=== PATIENT | male | born 1975 | race Two or more races ===

== ENCOUNTER 2016-12-11 02:54 | Emergency (ER) | payer SELFPAY | END 2016-12-11 02:57 | disposition home or self-care (01) | LOC: CED 02:54 | DX: S16.1XXA Strain of muscle, fascia and tendon at neck level, initial encounter (principal); X50.1XXA Overexertion from prolonged static or awkward postures, initial encounter | CPT/HCPCS: 99283 ==

== ENCOUNTER → 2017-03-11 | Outpatient (CLI) | payer OTHER ==
--- NOTE | ~2017-03-11 | EKG ---
PATIENT: YENI CHAVARRIA UNIT #: [id number] Ventricular Rate: 50 BPM Atrial Rate: 50 BPM P-R Interval: 178 ms QRS Duration: 92 ms Q-T Interval: 426 ms QTC Calculation(Bezet): 388 ms P [place]: 23 degrees Calculated R [place]: 48 degrees Calculated T [place]: 7 degrees Diagnosis Line: Sinus bradycardia Diagnosis Line: Otherwise normal ECG Diagnosis Line: No previous ECGs available Diagnosis Line: Confirmed by CHRISTINE OSPINA MD ([id number]) on Diagnosis Line: 03/11/2017 9:37:29 AM INTERPRETING MD: ANAI CORCORAN
[2017-03-11 07:01] LABS: HEMATOCRIT 47.3 % (38.0-50.0); HEMOGLOBIN 16.3 gm/dL (13.0-16.0); MEAN CELL VOLUME 80.2 FL (83-96); MEAN CORPUSCULAR HEMOGLOBIN 27.6 PG (28-34); MEAN CORPUSCULAR HGB CONC 34.4 g/dL (30-36); MEAN PLATELET VOLUME 6.6 FL (6.5-11.5); RED BLOOD COUNT 5.9 X10e (3.90-5.60); WHITE BLOOD COUNT 6.8 X10e3 (4.0-10.5)
[2017-03-11 07:59] LABS: BUN/CREATININE RATIO 15.45; CALCIUM SERUM 9.4 mg/dL (8.4-10.2); CREATININE SERUM 1.1 mg/dL (0.6-1.4); GLOM FILT RATE Estimated 81.8 mL/min (>60); POTASSIUM 4.2 mmol/L (3.5-5.1)
== END | disposition home or self-care (01) ==
LOC: CLAB 06:23
PROVIDERS: Urology
DX: Z01.818 Encounter for other preprocedural examination (principal); N47.1 Phimosis
CPT/HCPCS: 36415; 80048; 85027; 93005